=== PATIENT | male | born 1955 | race African-American/Black ===

== ENCOUNTER 2020-04-06 10:22 | Emergency (ER) | payer OTHER ==
[~2020-04-06] VITALS: Ht 185.4 cm; Wt 90.7 kg
[2020-04-06 10:29] VITALS: BP 190/99
--- NOTE | 2020-04-06 10:33 | NUR ---
PT AMBULATED TO ER BED 07
--- NOTE | 2020-04-06 10:50 | NUR ---
LAB AT BEDSIDE.
--- NOTE | 2020-04-06 10:50 | NUR ---
PT C/O OF SWELLING IN BOTH FEET AND FOOT PAIN IN RIGHT FOOT. SWELLING HAS BEEN RECURRENT IN PM. PT STATES RIGHT FOOT IS TENDER TO TOUCH. FEET APPEAR TO BE DRY. SKIN IS IN TACT. PT STATES FAMILY HISTORY OF DM1&2. PT DENIES HAVING DM. PT STATES HE HAS NO PMHX BUT IS TAKING HIGH BLOOD PRESSURE MEDICATION. PMHX: HYPERTENSION. NKA/NKDA.
--- NOTE | 2020-04-06 10:55 | NUR ---
EMT COMPLETED EKG.
[2020-04-06 11:05] LABS: BASOPHILS # (AUTO) 0.1 K/uL (0.00-0.22); EOSINOPHILS # (AUTO) 0.3 K/uL (0-0.4); EOSINOPHILS % (AUTO) 3.9 % (0.0-4.0); HEMATOCRIT 43.3 % (36-52); HEMOGLOBIN 14.5 g/dL (12.0-18.0); LYMPHOCYTES # (AUTO) 0.7 K/uL (2.0-11.5); LYMPHOCYTES % (AUTO) 9.5 % (20.5-51.1); MEAN CORPUSCULAR HEMOGLOBIN 32 pg (27-31); MEAN CORPUSCULAR HGB CONC 34 g/dL (33-37); MONOCYTES # (AUTO) 0.5 K/uL (0.8-1.0); MONOCYTES % (AUTO) 6.5 % (1.7-9.3); NEUTROPHILS % (AUTO) 79.1 % (42.2-75.2); PLATELET COUNT (AUTO) 175 K/uL (140-450); RED BLOOD CELL COUNT(AUTO) 4.61 MIL/uL (4.20-6.10); RED CELL DISTRIBUTION WIDTH 15.4 % (11.6-13.7)
--- NOTE | 2020-04-06 11:05 | NUR ---
PT IS AWAKE AND RESTING AT BEDSIDE. RESPIRATIONS ARE EVEN AND UNLABORED.
[2020-04-06 11:22] LABS: ALBUMIN 2.9 g/dL (3.4-5.0); ANION GAP 12.5 (8-16); CARBON DIOXIDE 31.9 mmol/L (21-32); CREATININE 0.9 mg/dL (0.6-1.3); POTASSIUM 3.4 mmol/L (3.5-5.1); TOTAL BILIRUBIN 4.4 mg/dL (0.0-1.0)
[2020-04-06 11:46] LABS: WHITE BLOOD COUNT (AUTO) 7.5 K/uL (4.8-10.8)
[2020-04-06 11:50] LABS: APPEARANCE,URINE HAZY (CLEAR); BILIRUBIN,URINE NEGATIVE (NEGATIVE); BLOOD, URINE NEGATIVE (NEGATIVE); COLOR,URINE YELLOW (YELLOW); LEUKOCYTE ESTERASE ,URINE NEGATIVE (NEGATIVE); NITRITE, URINE NEGATIVE (NEGATIVE); UGLUCOSE NEGATIVE (NEGATIVE)
--- NOTE | 2020-04-06 12:23 | NUR ---
ULTRA SOUND AT BEDSIDE.
[2020-04-06 12:45] VITALS: BP 179/91
--- NOTE | 2020-04-06 12:51 | NUR ---
Patient discharged with v/s stable. Written and verbal after care instructions given and explained. Patient verbalized understanding. Ambulatory with steady gait. All questions addressed prior to discharge. Advised to follow up with PMD.
== END 2020-04-06 12:51 | disposition home or self-care (01) ==
LOC: MED 10:22
DX: K70.9 Alcoholic liver disease, unspecified (principal); R60.0 Localized edema; I10 Essential (primary) hypertension; R16.0 Hepatomegaly, not elsewhere classified; F12.90 Cannabis use, unspecified, uncomplicated; Z98.890 Other specified postprocedural states; Z85.038 Personal history of other malignant neoplasm of large intestine
CPT/HCPCS: 36415; 71045; 76700; 80053; 81003; 83880; 84443; 85025; 93005; 99285; Q0092